=== PATIENT | female | born 1940 | race Caucasian/White ===

== ENCOUNTER 2017-06-11 10:47 | Inpatient (IN) | payer OTHER ==
[2017-06-11 11:30] LABS: ADD MAN DIFF? NO
[2017-06-11] MEDS: SOD CHLORIDE 0.9% 1,000 ML IV ×2 (11:34→20:51)
[2017-06-11 11:49] LABS: ALANINE AMINOTRANSFERASE 43 IU/L (13-69); ALBUMIN 3.9 g/dl (3.3-4.9); ALBUMIN/GLOBULIN RATIO 1.05; ALKALINE PHOSPHATASE 96 IU/L (42-121); ANION GAP 15 (8-16); ASPARTATE AMINO TRANSFERASE 32 IU/L (15-46); BILIRUBIN,INDIRECT 0.2 mg/dl (0-1.1); BILIRUBIN,TOTAL 0.2 mg/dl (0.2-1.3); BLOOD UREA NITROGEN 18 mg/dl (7-20); CALCIUM 9.5 mg/dl (8.4-10.2); CARBON DIOXIDE 30 mmol/L (21-31); CHLORIDE 100 mmol/L (97-110); CREATININE 0.83 mg/dl (0.44-1.00); GLUCOSE 164 mg/dl (70-220); LIPASE 39 U/L (23-300); POTASSIUM 4.7 mmol/L (3.5-5.1); SODIUM 140 mmol/L (135-144); TOTAL PROTEIN 7.6 g/dl (6.1-8.1)
[2017-06-11 11:57] LABS: WHITE BLOOD COUNT 10.6 10^3/ul (4.8-10.8)
[2017-06-11 11:57] LABS: BASOPHIL # 0.1 10^3/ul (0.0-0.1); BASOPHILS % 0.8 % (0.0-2.0); EOSINOPHILS # 0.3 10^3/ul (0.0-0.5); HEMATOCRIT 44.4 % (37.0-47.0); HEMOGLOBIN 14.7 g/dl (12.0-16.0); LYMPHOCYTES # 1.6 10^3/ul (0.8-2.9); LYMPHOCYTES % 14.7 % (15.0-51.0); MEAN CORPUSCULAR HEMOGLOBIN 32.2 pg (29.0-33.0); MEAN CORPUSCULAR HGB CONC 33.1 g/dl (32.0-37.0); MEAN CORPUSCULAR VOLUME 97.4 fl (82.0-101.0); MONOCYTE # 0.7 10^3/ul (0.3-0.9); MONOCYTES % 6.5 % (0.0-11.0); NEUTROPHIL # 7.9 10^3/ul (1.6-7.5); NEUTROPHILS % 74.5 % (39.0-77.0); PLATELET COUNT 406 10^3/UL (140-415); RED BLOOD COUNT 4.56 10^6/ul (4.20-5.40); RED CELL DISTRIBUTION WIDTH 12.4 % (11.5-14.5)
[2017-06-11 12:18] LABS: ADD UMIC YES; UR AMORPHOUS CRYSTAL FEW /HPF (NONE SEEN); UR ASCORBIC ACID NEGATIVE (NEGATIVE); UR BACTERIA FEW /HPF (NONE SEEN); UR BILIRUBIN (Dip) NEGATIVE (NEGATIVE); UR BLOOD (Dip) 2+ mg/dL (NEGATIVE); UR CLARITY TURBID (CLEAR); UR COLOR AMBER (YELLOW); UR GLUCOSE (Dip) NEGATIVE (NEGATIVE); UR KETONES (Dip) NEGATIVE (NEGATIVE); UR LEUKOCYTE ESTERASE (Dip) 2+ Leu/ul (NEGATIVE); UR MUCUS MODERATE /HPF (NONE SEEN); UR NITRITE (Dip) NEGATIVE (NEGATIVE); UR NONSQUAMOUS EPITHELIAL CELL 4 /HPF (NONE SEEN); UR RBC > 182 /HPF (0-5); UR SPECIFIC GRAVITY (Dip) 1.026 (1.003-1.030); UR SQUAMOUS EPITHELIAL CELL FEW /HPF (FEW); UR TOTAL PROTEIN (Dip) 3+ mg/dl (NEGATIVE); UR UROBILINOGEN (Dip) NEGATIVE (NEGATIVE); UR WBC 126 /HPF (0-5)
[2017-06-11 12:29] LABS: TROPONIN-I < 0.012 ng/ml (0.00-0.12)
[2017-06-11] MEDS: LEVOFLOXACIN 750MG/D5W (PMX) 150 ML IVPB (17:09)
[2017-06-11] MEDS ORDERED: NACL 0.9% 3 ML SYG IV (18:00)
[2017-06-11] MEDS: SOD CHLORIDE 0.9% 100 ML (18:19)
[2017-06-11] MEDS: IOHEXOL 300MG/ML 150 ML BTL (18:20)
[2017-06-11] MEDS ORDERED: ACETAMINOPHEN 325 MG TAB PO (20:00)
[2017-06-11] MEDS ORDERED: ONDANSETRON 4 MG INJ IV (20:00)
[2017-06-11] MEDS: DIPHENHYDRAMINE 50 MG INJ IV (20:28)
[2017-06-11] MEDS: LORAZEPAM 2 MG INJ IV (20:28)
[2017-06-11] MEDS: HALOPERIDOL 5 MG INJ IM (20:28)
[2017-06-12] MEDS ORDERED: GLUCOSE GEL 15 GRAM TUBE BUCCAL (05:00)
[2017-06-12] MEDS ORDERED: GLUCAGON 1 MG INJ IM (05:00)
[2017-06-12] MEDS ORDERED: DEXTROSE 50% 50 ML SYRINGE IV ×2 (05:00)
[2017-06-12] MEDS ORDERED: GLUCOSE GEL 15 GRAM TUBE PO ×2 (05:00)
[2017-06-12 05:53] LABS: ADD MAN DIFF? NO
[2017-06-12 05:56] LABS: BASOPHIL # 0.1 10^3/ul (0.0-0.1); BASOPHILS % 0.8 % (0.0-2.0); EOSINOPHILS # 0.3 10^3/ul (0.0-0.5); EOSINOPHILS % 3.4 % (0.0-7.0); HEMATOCRIT 38.1 % (37.0-47.0); HEMOGLOBIN 12.8 g/dl (12.0-16.0); LYMPHOCYTES # 1.5 10^3/ul (0.8-2.9); LYMPHOCYTES % 15.2 % (15.0-51.0); MEAN CORPUSCULAR HEMOGLOBIN 32.2 pg (29.0-33.0); MEAN CORPUSCULAR HGB CONC 33.6 g/dl (32.0-37.0); MEAN CORPUSCULAR VOLUME 95.7 fl (82.0-101.0); MONOCYTE # 0.8 10^3/ul (0.3-0.9); MONOCYTES % 8.5 % (0.0-11.0); NEUTROPHIL # 6.9 10^3/ul (1.6-7.5); NEUTROPHILS % 71.6 % (39.0-77.0); PLATELET COUNT 385 10^3/UL (140-415); RED BLOOD COUNT 3.98 10^6/ul (4.20-5.40); RED CELL DISTRIBUTION WIDTH 12.5 % (11.5-14.5)
[2017-06-12 05:56] LABS: WHITE BLOOD COUNT 9.6 10^3/ul (4.8-10.8)
[2017-06-12] MEDS: LEVOFLOXACIN 750 MG TABLET PO (06:24)
[2017-06-12 06:30] LABS: ALANINE AMINOTRANSFERASE 40 IU/L (13-69); ALBUMIN 3.3 g/dl (3.3-4.9); ALKALINE PHOSPHATASE 79 IU/L (42-121); ANION GAP 10 (8-16); ASPARTATE AMINO TRANSFERASE 33 IU/L (15-46); BILIRUBIN,INDIRECT 0.1 mg/dl (0-1.1); BILIRUBIN,TOTAL 0.1 mg/dl (0.2-1.3); BLOOD UREA NITROGEN 12 mg/dl (7-20); CALCIUM 8.7 mg/dl (8.4-10.2); CARBON DIOXIDE 27 mmol/L (21-31); CHLORIDE 105 mmol/L (97-110); CREATININE 0.75 mg/dl (0.44-1.00); GLUCOSE 119 mg/dl (70-220); POTASSIUM 3.7 mmol/L (3.5-5.1); SODIUM 138 mmol/L (135-144); TOTAL PROTEIN 6.6 g/dl (6.1-8.1)
[2017-06-12] MEDS: INSULIN ASPART [NOVOLOG] 3 ML PEN SC ×4 (08:00→21:00)
[2017-06-12] MEDS: ENOXAPARIN 40 MG/0.4 ML SYG SC (09:43)
[2017-06-12] MEDS: MEROPENEM 1 GM/50ML(PMX) 50 ML IVPB ×2 (17:40→21:45)
[2017-06-13] MEDS: MEROPENEM 1 GM/50ML(PMX) 50 ML IVPB (06:06)
[2017-06-13] MEDS: INSULIN ASPART [NOVOLOG] 3 ML PEN SC ×3 (08:00→17:36)
[2017-06-13] MEDS: ENOXAPARIN 40 MG/0.4 ML SYG SC (08:25)
[2017-06-13] MEDS: FOSFOMYCIN 3 GM PACKET PO (13:02)
== END 2017-06-13 19:00 | DRG 690 ==
LOC: E/R 10:47 → PP2 12:53
DX: N39.0 Urinary tract infection, site not specified (principal); F03.90 Unspecified dementia, unspecified severity, without behavioral disturbance, psychotic disturbance, mood disturbance, and anxiety; E11.9 Type 2 diabetes mellitus without complications; J44.0 Chronic obstructive pulmonary disease with (acute) lower respiratory infection; B95.2 Enterococcus as the cause of diseases classified elsewhere; I10 Essential (primary) hypertension; E78.5 Hyperlipidemia, unspecified; E86.0 Dehydration; F17.210 Nicotine dependence, cigarettes, uncomplicated; J20.9 Acute bronchitis, unspecified; Z79.4 Long term (current) use of insulin
CPT/HCPCS: 36415; 74177; 80053; 81001; 82962; 83690; 84484; 85025; 87081; 87086; 93005; 96372; 96374; 96375; 97162; 99285-25

== ENCOUNTER 2018-10-26 10:30 | Emergency (ER) | payer OTHER ==
[2018-10-26 11:01] LABS: WHITE BLOOD COUNT 25.3 10^3/ul (4.8-10.8)
[2018-10-26 11:01] LABS: ABNORMAL IP MESSAGE 1; HEMATOCRIT 44.2 % (37.0-47.0); HEMOGLOBIN 13.9 g/dl (12.0-16.0); MEAN CORPUSCULAR HEMOGLOBIN 31.9 pg (29.0-33.0); MEAN CORPUSCULAR HGB CONC 31.4 g/dl (32.0-37.0); MEAN CORPUSCULAR VOLUME 101.4 fl (82.0-101.0); MEAN PLATELET VOLUME 9.8 fl (7.4-10.4); PLATELET COUNT 305 10^3/UL (140-415); RED BLOOD COUNT 4.36 10^6/ul (4.20-5.40); RED CELL DISTRIBUTION WIDTH 13.5 % (11.5-14.5)
[2018-10-26 11:03] LABS: ADD MAN DIFF? YES; POSITIVE DIFF @See below
[2018-10-26] MEDS: LEVOFLOXACIN 500MG/D5W (PMX) 100 ML IVPB (11:14)
[2018-10-26] MEDS: METHYLPREDNISOLONE 125 MG INJ IV (11:14)
[2018-10-26] MEDS: SODIUM CHLORIDE 0.9% 1L BAG IV* (11:15)
[2018-10-26 11:27] LABS: ANION GAP 10 (5-13); BLOOD UREA NITROGEN 18 mg/dl (7-20); CALCIUM 9.4 mg/dl (8.4-10.2); CARBON DIOXIDE 29 mmol/L (21-31); CHLORIDE 102 mmol/L (97-110); CREATININE 0.78 mg/dl (0.44-1.00); GLUCOSE 200 mg/dl (70-220); POTASSIUM 3.8 mmol/L (3.5-5.1); SODIUM 141 mmol/L (135-144)
[2018-10-26 11:30] LABS: ANISOCYTOSIS 1+ (0-0); BAND NEUTROPHILS #M 2.2 10^3/ul (0.0-0.6); BAND NEUTROPHILS % (M) 9 % (0-4); LYMPHOCYTES #M 1.7 10^3/ul (0.8-2.9); LYMPHOCYTES % (M) 7 % (15-51); MONOCYTE #M 1.2 10^3/ul (0.3-0.9); MONOCYTES % (M) 5 % (0-11); PLATELET ESTIMATE NORMAL; SEG NEUT #M 20.5 10^3/ul (1.6-7.5); SEGMENTED NEUTROPHILS (M) % 79 % (39-77); SMUDGE%M 3 % (0-0)
[2018-10-26] MEDS: IPRATROPIUM (NEB) 0.5 MG/2.5 ML AMP INH (11:34)
[2018-10-26] MEDS: ALBUTEROL 0.083% (NEB) 2.5 MG/3 ML AMP HHN (11:34)
[2018-10-26] MEDS: ACETAMINOPHEN 325 MG TAB PO (11:38)
[2018-10-26 14:28] LABS: LACTIC ACID 6.6 mmol/L (0.5-2.0)
[2018-10-26] MEDS ORDERED: NORepinephrine 8MG/250 ML (PMX 250 ML (14:42)
[2018-10-26] MEDS: SOD CHLORIDE 0.9% 1,000 ML IV (14:50)
[2018-10-26] MEDS: NORepinephrine 8MG/250 ML (PMX 250 ML IV (14:51)
[2018-10-26] MEDS: LIDOCAINE 1% (MPF) 5 ML VIAL SC ×2 (15:00→16:30)
[2018-10-26 16:42] LABS: LACTIC ACID 7.5 mmol/L (0.5-2.0)
[2018-10-26] MEDS ORDERED: SOD CHLORIDE 0.9% 1,000 ML IV (18:48)
[2018-10-26] MEDS ORDERED: ONDANSETRON 4 MG INJ IV (19:00)
[2018-10-26] MEDS ORDERED: DICLOFENAC (EC) 25 MG TAB PO (19:00)
[2018-10-26] MEDS ORDERED: NACL 0.9% 3 ML SYG IV (19:00)
[2018-10-26] MEDS ORDERED: ACETAMINOPHEN 325 MG TAB PO (19:00)
[2018-10-26] MEDS ORDERED: traMADol 50 MG TAB PO (19:00)
[2018-10-26] MEDS ORDERED: GLUCAGON 1 MG INJ IM (20:00)
[2018-10-26] MEDS ORDERED: GLUCOSE GEL 15 GRAM TUBE PO ×2 (20:00)
[2018-10-26] MEDS ORDERED: DEXTROSE 50% 50 ML SYRINGE IV ×2 (20:00)
[2018-10-26] MEDS ORDERED: GLUCOSE GEL 15 GRAM TUBE BUCCAL (20:00)
[2018-10-26 20:46] LABS: PROCALCITONIN 0.05 ng/mL (0.00-0.10)
[2018-10-26] MEDS ORDERED: FOLIC ACID 1 MG TAB PO (22:00)
[2018-10-26] MEDS ORDERED: ATORVASTATIN 20 MG TAB PO (22:00)
[2018-10-26] MEDS ORDERED: GABAPENTIN 300 MG CAP PO (22:00)
[2018-10-26] MEDS ORDERED: INSULIN ASPART [NOVOLOG] 3 ML PEN SC (22:00)
[2018-10-26] MEDS ORDERED: DOCUSATE SODIUM 100 MG CAP PO (22:00)
[2018-10-26] MEDS ORDERED: MEMANTINE 10 MG TAB PO (22:00)
[2018-10-26] MEDS ORDERED: OXYBUTYNIN 5 MG TAB PO (22:00)
[2018-10-27] MEDS ORDERED: ACCU-CHEK XX (02:00)
[2018-10-27] MEDS: clonAZEPAM 0.5 MG TAB PO (02:50)
[2018-10-27 05:49] LABS: ADD MAN DIFF? NO
[2018-10-27 05:52] LABS: WHITE BLOOD COUNT 16.5 10^3/ul (4.8-10.8)
[2018-10-27 05:52] LABS: BASOPHIL # 0.1 10^3/ul (0.0-0.1); BASOPHILS % 0.3 % (0.0-2.0); EOSINOPHILS # 0.1 10^3/ul (0.0-0.5); EOSINOPHILS % 0.3 % (0.0-7.0); HEMATOCRIT 35.7 % (37.0-47.0); HEMOGLOBIN 11.6 g/dl (12.0-16.0); LYMPHOCYTES # 2.3 10^3/ul (0.8-2.9); LYMPHOCYTES % 13.7 % (15.0-51.0); MEAN CORPUSCULAR HEMOGLOBIN 32.9 pg (29.0-33.0); MEAN CORPUSCULAR HGB CONC 32.5 g/dl (32.0-37.0); MEAN CORPUSCULAR VOLUME 101.1 fl (82.0-101.0); MONOCYTE # 1.1 10^3/ul (0.3-0.9); MONOCYTES % 6.9 % (0.0-11.0); NEUTROPHIL # 12.9 10^3/ul (1.6-7.5); NEUTROPHILS % 78.2 % (39.0-77.0); PLATELET COUNT 278 10^3/UL (140-415); RED BLOOD COUNT 3.53 10^6/ul (4.20-5.40); RED CELL DISTRIBUTION WIDTH 13.7 % (11.5-14.5)
[2018-10-27 06:32] LABS: ALANINE AMINOTRANSFERASE 15 IU/L (13-69); ALBUMIN 3.6 g/dl (3.3-4.9); ALBUMIN/GLOBULIN RATIO 1.24; ALKALINE PHOSPHATASE 52 IU/L (42-121); ANION GAP 8 (5-13); ASPARTATE AMINO TRANSFERASE 20 IU/L (15-46); BILIRUBIN,INDIRECT 0.6 mg/dl (0-1.1); BILIRUBIN,TOTAL 0.6 mg/dl (0.2-1.3); BLOOD UREA NITROGEN 14 mg/dl (7-20); CALCIUM 8.3 mg/dl (8.4-10.2); CARBON DIOXIDE 25 mmol/L (21-31); CHLORIDE 109 mmol/L (97-110); CREATININE 0.66 mg/dl (0.44-1.00); GLUCOSE 123 mg/dl (70-220); MAGNESIUM 1.8 mg/dl (1.7-2.5); PHOSPHORUS 2.1 mg/dl (2.5-4.9); POTASSIUM 3.9 mmol/L (3.5-5.1); SODIUM 142 mmol/L (135-144); TOTAL PROTEIN 6.5 g/dl (6.1-8.1)
[2018-10-27] MEDS ORDERED: MULTIVITAMINS THERAPEUTIC TAB PO (09:00)
[2018-10-27] MEDS ORDERED: ENOXAPARIN 40 MG/0.4 ML SYG SC (09:00)
[2018-10-27] MEDS ORDERED: CHOLECALCIFEROL 400 UNITS TAB PO (09:00)
[2018-10-27] MEDS ORDERED: ASPIRIN (EC) 325 MG TAB PO (09:00)
[2018-10-27] MEDS ORDERED: SERTRALINE 50 MG TAB PO (09:00)
[2018-10-27 09:16] LABS: HEMOGLOBIN A1C 6.8 % (0-5.9)
[2018-10-27] MEDS: HALOPERIDOL 5 MG INJ IM (09:45)
[2018-10-27] MEDS ORDERED: HALOPERIDOL 5 MG INJ IM (10:00)
[2018-10-27] MEDS ORDERED: LEVOFLOXACIN 750MG/D5W (PMX) 150 ML IVPB (10:00)
[2018-10-27 11:38] LABS: LACTIC ACID 1.3 mmol/L (0.5-2.0)
== END 2018-10-27 19:56 | disposition short-term general hospital (02) ==
LOC: E/R 10:30
DX: A41.9 Sepsis, unspecified organism (principal); E11.9 Type 2 diabetes mellitus without complications; J44.1 Chronic obstructive pulmonary disease with (acute) exacerbation; R65.20 Severe sepsis without septic shock; J18.1 Lobar pneumonia, unspecified organism; Z79.82 Long term (current) use of aspirin
CPT/HCPCS: 36415; 36569; 71045; 76937; 80048; 80053; 82962; 83036; 83605; 83735; 84100; 84145; 84443; 85025; 87040-91; 94664; 96361; 96365; 96372; 96375; 99285-25